=== PATIENT | male | born 1995 | race Caucasian/White ===

== ENCOUNTER 2018-12-25 23:54 | Emergency (ER) | payer SELFPAY ==
[2018-12-26] MEDS ORDERED: TYLENOL 325 MG PO STA (01:31)
[2018-12-26] MEDS ORDERED: TYLENOL 325 MG ONE (01:45)
[2018-12-26 01:50] LABS: Amphetamine,Urine NEGATIVE (NEGATIVE); Barbiturate,Urine NEGATIVE (NEGATIVE); Benzodiazepine,Urine NEGATIVE (NEGATIVE); Cocaine,Urine NEGATIVE (NEGATIVE); Methadone,Urine NEGATIVE (NEGATIVE); Opiate,Urine POSITIVE (NEGATIVE); PCP,Urine NEGATIVE (NEGATIVE); THC,Urine POSITIVE (NEGATIVE)
--- NOTE | 2018-12-26 02:03 | ERPHSYRPT ---
- History of Present Illness Source: patient Exam Limitations: no limitations Patient Subjective Stated Complaint: PT BROUGHT IN BY POLICE FOR SKILLED NURSING CLEARANCE AFTER STATING HE INGESTED A WHITE SUBSTANCE. PT STATES THE SUBSTANCE WAS A "CUT " USED TO DILUTE OTHER DRUGS. Triage Nursing Assessment: PINK/WARM/DRY, RESP EASY, A&OX4, STEADY GAIT, NO DISTRESS NOTED. Physician History: Pt was brought to the ED by the police for medical clearance. Pt complains of headache. Pt had a h/o TBI and hemorrhagic brain injury. Pt states, he is taking Xanax, and today drank ETOH. He denies any other drug abuse. Timing/Duration: today Allergies/Adverse Reactions: No Known Drug Allergies Allergy (Unverified 12/25/18 23:57) Home Medications: Butrex 12/25/18 [History] Hx Tetanus, Diphtheria Vaccination/Date Given: No Hx Influenza Vaccination/Date Given: No Hx Pneumococcal Vaccination/Date Given: No Immunizations Up to Date: No - Review of Systems Constitutional: No Fever, No Chills Neurological: Headache - Past Medical History Pertinent Past Medical History: Yes Other Medical History: LUPUS, RIB FX 1 MONTH AGO, L1 TEAR. - Past Surgical History Past Surgical History: Yes Musculoskeletal: Orthopedic Surgery Male Surgical History: Vasectomy Other Surgical History: TESTICULAR ABSCEES, RT ARM - Social History Smoking Status: Current every day smoker Exposure to second hand smoke: Yes Drug Use: marijuana Patient Lives Alone: No - Nursing Vital Signs Nursing Vital Signs: Initial Vital Signs Temperature 98.3 F 12/26/18 00:06 Pulse Rate 92 H 12/26/18 00:06 Respiratory Rate 14 12/26/18 00:06 Blood Pressure 136/88 12/26/18 00:06 O2 Sat by Pulse Oximetry 96 12/26/18 00:06 Pain Scale Pain Intensity 0 - Physical Exam General Appearance: no apparent distress, alert Eye Exam: PERRL/EOMI, eyes nml inspection Ears, Nose, Throat Exam: normal ENT inspection, TMs normal, pharynx normal, moist mucous membranes Neck Exam: normal inspection, non-tender, supple, full range of motion Respiratory Exam: normal breath sounds, lungs clear, No respiratory distress Cardiovascular Exam: regular rate/rhythm, normal heart sounds, normal peripheral pulses Gastrointestinal/Abdomen Exam: soft, normal bowel sounds, No tenderness, No mass Neurologic Exam: alert, cooperative, sleeve tailor II-XII nml as tested, other (pressed speech. ) SpO2: 96 - Course Nursing assessment & vital signs reviewed: Yes Ordered Tests: Active Orders 24 hr Category Date Time Status ETHYL ALCOHOL Stat Lab 12/26/18 01:37 Completed Urine Triage Profile Stat Lab 12/26/18 00:55 Completed Medication Summary Discontinued Medications Generic Name Dose Route Start Last Admin Trade Name Alexsandra PRN Reason Stop Dose Admin Acetaminophen 975 mg 12/26/18 01:31 12/26/18 01:45 Tylenol 325 Mg PO 12/26/18 01:32 975 mg STAT STA Administration Acetaminophen Confirm 12/26/18 01:45 Tylenol 325 Mg Administered 12/26/18 01:46 Dose 975 mg .[facility]TE [facility] Lab/Rad Data: Laboratory Results 12/26/18 12/26/18 Range/Units 01:37 00:55 Urine Opiates Level POSITIVE (NEGATIVE) Ur Methadone NEGATIVE (NEGATIVE) Urine Barbiturates NEGATIVE (NEGATIVE) Ur Phencyclidine (PCP) NEGATIVE (NEGATIVE) Urine Amphetamine NEGATIVE (NEGATIVE) U Benzodiazepine Level NEGATIVE (NEGATIVE) Urine Cocaine NEGATIVE (NEGATIVE) Urine Marijuana (THC) POSITIVE (NEGATIVE) Ethyl Alcohol 171 H (0-10) mg/dL - Progress Progress: unchanged Progress Note: 12/26/18 02:03 Pt was found to have elevated blood alcohol, and had opioids and THC in his urine. Pt is cleared to d/c with the police. Pt did get Tylenol 1gr PO for headache, once. - Departure Departure Disposition: Detention/Jail Clinical Impression: Alcohol intoxication, Drug abuse Condition: Stable Critical Care Time: No Referrals: LOAN MEADE [Primary Care Provider] - Additional Instructions: Pt is d/c to police custody.
[2018-12-26 02:20] VITALS: BP 125/80; PULSE 85; O2SAT 97
== END 2018-12-26 02:22 | disposition home or self-care (01) ==
LOC: ED 23:54
DX: F10.129 Alcohol abuse with intoxication, unspecified (principal); F19.129 Other psychoactive substance abuse with intoxication, unspecified; Z02.89 Encounter for other administrative examinations
CPT/HCPCS: 36415; 80307; 99283; A9270-GY; G0480